=== PATIENT | male | born 1945 | race African-American/Black ===

== ENCOUNTER → 2017-10-21 | Outpatient (CLI) | payer MEDICARE ==
--- NOTE | 2017-10-21 13:38 | EST ---
EXERCISE STRESS DATE OF SERVICE: 10/21/2017 AGE: 72 SEX: Male HT: 70 WT: 216 PROTOCOL: Ritesh. STAGE: III DURATION OF EXERCISE: 9:24 HEART RATE REST: 44 BLOOD PRESSURE REST: 117/78 MAXIMUM HEART RATE ACHIEVED: 119 MAXIMUM BLOOD PRESSURE: 207/70 85% MPHR: 128 100% MPHR: 150 METS: 10.9 INDICATIONS: Bradycardia. CLINICAL INFORMATION: Baseline EKG revealed normal sinus rhythm with left anterior fascicular block and evidence of LVH by voltage criteria. Patient walked for 9 minutes 24 seconds achieved a maximal heart rate of 119 beats per minute, which is less than 85% of predicted maximal. He developed fatigue and shortness of breath. Resting heart rate is 44 beats per minute. Peak heart rate is 119 beats per minute. Resting blood pressure was 117/78. Peak blood pressure was 207/70. Patient had some rare isolated PVCs. By EKG criteria, this is an inconclusive stress test because of inadequate chronotropic response with a fairly decent exercise time. There was no angina reported. IMPRESSION: Inconclusive stress test with fair exercise capacity. If ischemia is suspected, would recommend a pharmacological stress test. MMODL / IJN: [id number] /
== END ==
LOC: RADNMMAIN 11:02
PROVIDERS: ATTEND Family Medicine
DX: R00.1 Bradycardia, unspecified (principal)
CPT/HCPCS: 93017

== ENCOUNTER → 2021-04-21 | Outpatient (CLI) | payer MEDICARE ==
--- NOTE | 2021-04-21 12:23 | US ---
EXAMINATION TYPE: US kidneys/renal and bladder DATE OF EXAM: 04/21/2021 COMPARISON: NONE CLINICAL HISTORY: N18.31 CKD. EXAM MEASUREMENTS: Right Kidney: 10.9 x 5.2 x 5.0 cm Left Kidney: 10.4 x 5.8 x 4.5 cm Right Kidney: No hydronephrosis or shadowing renal calculi seen Left Kidney: 3.8 x 2.8 x 2.7cm cyst superior pole no hydronephrosis or shadowing renal calculi Bladder: Urinary bladder is not well-distended Bilateral Jets seen: yes IMPRESSION: 1. No hydronephrosis or shadowing renal calculi. 2. 3.8 cm cyst at the upper pole of the left kidney. 3. Bilateral ureteral jets are seen. The urinary bladder is not well-distended.
== END | disposition home or self-care (01) ==
LOC: RADUSWWP 09:27
PROVIDERS: ATTEND Internal Medicine Nephrology
DX: N28.1 Cyst of kidney, acquired (principal); N18.31 Chronic kidney disease, stage 3a
CPT/HCPCS: 76770

== ENCOUNTER 2022-06-26 05:50 | Day surgery (SDC) | payer MEDICARE ==
[2022-06-25 09:14] VITALS: BMI 34.0
[~2022-06-26 05:50] MED LIST: LACTATED RINGERS 1,000 ML IV SCH
[2022-06-26 06:14] VITALS: TEMP 97.8
[2022-06-26] MEDS ORDERED: LACTATED RINGERS 1,000 ML IV ONE (06:16)
[2022-06-26 06:25] LABS: Glucose,Whole Blood 139 mg/dL (70-110)
[2022-06-26] MEDS ORDERED: PROPOFOL 10 MG/ML 20 ML VIAL IV ONE (06:58)
--- NOTE | 2022-06-26 07:17 | P.PCN ---
Date of Procedure: 06/26/22 Procedure(s) Performed: BRIEF HISTORY: Patient is a 77-year-old pleasant female scheduled for an elective colonoscopy as a part of screening for colorectal neoplasia. His brother was diagnosed with colon cancer at age 50. PROCEDURE PERFORMED: Colonoscopy with snare polypectomy. PREOPERATIVE DIAGNOSIS: F screening for colon cancer andamily History of Colon Cancer. IV sedation per Anesthesia. PROCEDURE: After informed consent was obtained, the patient, was brought into the endoscopy unit. IV sedation was administered by Anesthesia under continuous monitoring. Digital rectal examination was normal. Initially the Olympus CF-160 flexible video colonoscope was then inserted in the rectum, gradually advanced into the cecum without any difficulty. Careful examination was performed as the scope was gradually being withdrawn. Ileocecal valve and the appendiceal orifice were visualized and appeared normal. Prep was excellent. Mucosa of the cecum, ascending colon appeared normal. In the transverse colon there was a 3 mm and 6 mm polyp removed by snare polypectomy. In the descending colon there was a 7 mm polyp removed by snare polypectomy and in the sigmoid colon there was a 5 mm polyp removed by snare polypectomy. Rest of the , transverse colon, descending colon, sigmoid colon, and rectum appeared normal. Retroflexion was performed in the rectum aninternal hemorrhoidsere seen. The patient tolerated the procedure well. IMPRESSION: 3 mm and 6 mm transverse colon polyp status post polypectomy 7 mm descending colon polyp status post polypectomy 5 mm sigmoid polyp status post polypectomy Small internal hemorrhoids RECOMMENDATIONS: Findings of this examination were discussed with the patient as well as his family. He was advised to follow with the biopsy results. If the biopsy reveals adenoma he can have a repeat colonoscopy in 3 years.
[2022-06-26 07:22] VITALS: RESP 16
[2022-06-26 08:04] VITALS: BP 147/83; PULSE 58
== END 2022-06-26 08:09 | disposition home or self-care (01) ==
LOC: ORWHC2ENDO 05:50
PROVIDERS: ATTEND Internal Medicine Gastroenterology
DX: Z12.11 Encounter for screening for malignant neoplasm of colon (principal); D12.4 Benign neoplasm of descending colon; D12.5 Benign neoplasm of sigmoid colon; D12.3 Benign neoplasm of transverse colon; K64.8 Other hemorrhoids; Z80.0 Family history of malignant neoplasm of digestive organs; I10 Essential (primary) hypertension; E11.69 Type 2 diabetes mellitus with other specified complication; E78.5 Hyperlipidemia, unspecified; M19.90 Unspecified osteoarthritis, unspecified site; Z79.4 Long term (current) use of insulin; Z79.899 Other long term (current) drug therapy; Z79.82 Long term (current) use of aspirin; Z82.49 Family history of ischemic heart disease and other diseases of the circulatory system
CPT/HCPCS: 88305; 45385; J2704

== ENCOUNTER → 2023-02-22 | Outpatient (CLI) | payer MEDICARE ==
[2023-02-22 11:23] LABS: African American GFR (CKD) 41.4 (60.0-200.0); Anion Gap 9.2 mmol/L (10.00-18.00); Blood Urea Nitrogen 29.6 mg/dL (9.0-27.0); Carbon Dioxide 27.8 mmol/L (20.0-27.5); Non-African American GFR(CKD) 35.8 (60.0-200.0); Potassium 4.8 mmol/L (3.5-5.5)
[2023-02-22 12:03] LABS: HCT 45.7 % (39.6-50.0); HGB 14.7 g/dL (13.0-17.0); MCH 28.7 pg (27.0-32.0); MCHC 32.2 g/dL (32.0-37.0); MCV 89.1 fL (80.0-97.0); Mean Platelet Volume 13.1 fL (9.5-12.2); NRBC Per 100 WBC 0 /100 WBCS (0.0-0.0); Platelet Count 135 X 10*3/uL (140-440); RBC 5.13 X 10*6/uL (4.40-5.60); RDW 14.1 % (11.5-14.5); WBC 9.91 X 10*3/uL (4.50-10.00)
== END | disposition home or self-care (01) ==
LOC: LABPAT 07:56
PROVIDERS: ATTEND Internal Medicine Interventional Cardiology
DX: Z01.812 Encounter for preprocedural laboratory examination (principal); I49.5 Sick sinus syndrome
CPT/HCPCS: 80051; 82565; 84520; 85027

== ENCOUNTER 2023-03-05 09:27 | Day surgery (SDC) | payer MEDICARE ==
[~2023-03-05 09:27] MED LIST changes: -LACTATED RINGERS 1,000 ML IV SCH; +ceFAZolin 1 GM in SODIUM CHLORIDE 0.9% IRRIG BTL 250 ML IRRIGATION PRN
[2023-03-05] MEDS: SODIUM CHLORIDE 0.9% 1,000 ML IV SCH (10:00)
[2023-03-05 10:07] LABS: Glucose,Whole Blood 199 mg/dL (70-110)
[2023-03-05] MEDS ORDERED: IOPAMIDOL-370 100ML BTL INJ ONE (12:00)
[2023-03-05] MEDS ORDERED: LIDOCAINE 1% INJ 10MG/ML (20 ML MDV) ONE ×2 (12:05→12:06)
[2023-03-05] MEDS ORDERED: MIDAZOLAM 2 MG/2 ML VIAL IV ONE (12:13)
[2023-03-05] MEDS ORDERED: LIDOCAINE 1% INJ 10MG/ML (20 ML MDV) SQ ONE (12:21)
[2023-03-05] MEDS ORDERED: NITROGLYCERIN SL TABS 0.4 MG TAB SUBLINGUAL ONE ×2 (14:35→14:38)
[2023-03-05] MEDS ORDERED: amLODIPine 5 MG TAB PO STA (14:36)
[2023-03-05] MEDS ORDERED: amLODIPine 5 MG TAB PO ONE (14:49)
[2023-03-05] MEDS ORDERED: ACETAMINOPHEN TAB 325 MG TAB PO PRN (14:50)
--- NOTE | 2023-03-05 15:19 | P.PCN ---
Date of Procedure: 03/05/23 Preoperative Diagnosis: Procedure(s): Dual Chamber Permanent Pacemaker Implantation; Cardiac Fluoroscopy Indications: Sick sinus syndrome with symptomatic bradycardia with near syncope Preprocedure Diagnosis: Symptomatic bradycardia with near syncope Postprocedure Diagnosis: Symptomatic bradycardia with near syncope Clinical information: This gentleman is 78 years of age with a history of hypertension hyperlipidemia type 2 diabetes moderate mitral regurgitation and tricuspid regurgitation. He has been having symptoms of exertional near syncope lightheadedness with bradycardia and heart rate in the 30s sometimes 28-30 bpm and average heart rate of 40 bpm. In view of his symptomatic bradycardia he was advised to dual-chamber pacemaker after due discussion regarding risks benefits and options. He understood or details and wish to proceed with the procedure Moderate conscious sedation time was 159 minutes. Patient was administered 1 circumflex oxygen saturation hematemesis and EKG were monitored closely Procedure Details: The risks, benefits, complications, treatment options, and expected outcomes were discussed with the patient. The patient and/or family concurred with the proposed plan, giving informed consent. Patient was prepped and draped in the usual strict sterile fashion. After the antibiotic was completely infused, 20 mL of 1% lidocaine was infiltrated into the area just medial to the left deltopectoral groove. Using a micropuncture needle technique with fluoroscopic guidance two access were obtained into the axillary vein. 2 wires were advanced under to access fluoroscopic guidance in In the right atrium. Using a #15 scalpel, an incision was made. The incision was extended to the pre-pectoral fascia using blunt dissection. Using cautery and dissection a pocket was made. A guidewire was advanced to the heart under fluoroscopic guidance. Sheath was advanced over the guidewire. A guidewire was retained, and dilator was removed. A pacemaker lead was advanced to the heart underfluoroscopic guidance. The sheath was peeled away. The lead was fixated to the right ventricular apical septum. Appropriate sensing and thresholds were obtained. No diaphragmatic pacing occurred at 10 V and 1.5 ms. As second sheath was advanced over the guidewire. The dilator and guidewire were removed. A pacemaker lead was advanced to the heart underfluoroscopic guidance. The sheath was peeled away. The lead was fixated to the right atrial appendage. Appropriate sensing and thresholds were obtained. No diaphragmatic pacing occurred at 10 V and 1.5 ms. Both were active leads and both the leads were screwed and and secured to the underlying muscle using 2 separate 0 silk sutures. The leads were then sutured to the pectoralis muscle using silk. Hemostasis was achieved. The measurements were then rechecked. After obtaining a good lead position for both atrial and ventricular leads, upon rechecking the numbers are suboptimal so both the leads had to be repositioned and again all paramedics were checked pacing was checked at 10 more so and after making sure that the thresholds and sensitivities impedance was optimal the leads were again secured to the underlying muscle. The pocket was irrigated with antibiotic. A left pre-pectoral pocket was fashioned.The pocket was irrigated with antibiotic and iron graft and antibiotic sponge in the pocket for minutes. The leads were attached to the generator. The system was placed in the pocket. The pacemaker and lead system were visualized under fluoroscopy. Appropriate redundancy/slacken the leads were noted. The pins of the leads were beyond the set screws. The pulse generator was also secured to the underlying muscle using a 0 silk suture. Hemostasis was reverified. The pocket was then closed with 2.0 and 3.0 Vicryl. Steri-Strips, a gauze dressing, and operative site were placed. Pacemaker Donor Services Technician : Medtronic model W1 DR 01 serial number [id number] Atrial lead model #456495 serial number [id number] placed in the right atrial appendage. The lead performance support analyst is Medtronic Ventricular lead lead performance support analyst is Medtronic model #639679 serial number [id number] placed in right ventricular apex The atrial sensing after a lot of effort was acceptable with P waves of 1.5 mV, pacing impedance of 513 ohms and a threshold of 0.5 V at 0.4 ms. The ventricular R waves were in the range of 7-9 mV pacing impedance was 698 ohms and the threshold was 0.5 V at 0.4 ms The pacemaker was set at a lower rate of 55 high rate of 120 BPM the mode was was DDD AV paced delay was 180 ms. AV sensed delay was 150 ms. Estimated Blood Loss: Less than 50 ml. Complications: None; patient tolerated the procedure well. There was no family available and patient did not wish that I talked any family members. Discussed with him the details of the procedure and that he will be discharged tomorrow after we recheck a chest x-ray and recheck the device Disposition: Telemetry unit.- hemodynamically stable. Condition: Stable. No complications. Patient will be discharged in 24 hours after device check and chest x-ray.
[2023-03-05 16:01] LABS: Glucose,Whole Blood 177 mg/dL (70-110)
--- NOTE | 2023-03-05 16:37 | XR ---
EXAMINATION TYPE: XR chest 1V portable DATE OF EXAM: 03/05/2023 Comparison: None Clinical History: 78 year-old male Lead placement check Findings: Left anterior chest wall pacemaker generator with right atrial right ventricular leads. Heart mildly enlarged. Slightly low lung volumes. Interstitial/vascular prominence. No georgiana consolidation or pleu ral effusion. No appreciable pneumothorax. Impression: Cardiomegaly with some hypoventilatory changes. Interstitial/vascular prominence could reflect mild p ulmonary vascular congestion.
[2023-03-05] MEDS ORDERED: hydrALAZINE HCL 20 MG/ML 1 ML VIAL IVP PRN (17:24)
[2023-03-05 17:37] LABS: Glucose,Whole Blood 376 mg/dL (70-110)
[2023-03-05] MEDS ORDERED: lisinopriL 20 MG TAB PO STA (18:38)
[2023-03-05] MEDS ORDERED: ATORVASTATIN 20 MG TAB PO SCH (21:00)
[2023-03-05] MEDS ORDERED: INSULIN ASPART (NovoLOG) 100 UNIT/ML VIAL SQ SCH (21:00)
[2023-03-05 21:02] LABS: Glucose,Whole Blood 312 mg/dL (70-110)
[2023-03-06] MEDS: SODIUM CHLORIDE 0.9% 1,000 ML IV SCH (03:57)
[2023-03-06] MEDS ORDERED: INSULIN DETEMIR (LEVEMIR) 100 UNIT/ML SYR SQ SCH (07:00)
[2023-03-06 07:31] VITALS: BP 141/69; PULSE 51; RESP 18; TEMP 98.3
[2023-03-06 08:06] LABS: Glucose,Whole Blood 122 mg/dL (70-110)
[2023-03-06] MEDS ORDERED: ASPIRIN 81 MG PO SCH (09:00)
[2023-03-06] MEDS ORDERED: LINAGLIPTIN 5 MG TABLET PO SCH (09:00)
[2023-03-06] MEDS ORDERED: lisinopriL 20 MG TAB PO SCH (09:00)
[2023-03-06 12:17] LABS: Glucose,Whole Blood 346 mg/dL (70-110)
--- NOTE | 2023-03-06 15:48 | P.DS ---
Providers Attending physician: Leelee Ghosh Primary care physician: [facility] Course: The patient is a 78-year-old male who is currently admitted to the hospital after undergoing biventricular pacemaker implantation yesterday with Dr. SEKOU Ghosh. The patient was found to have severe sick sinus syndrome with average rates in the 40s and poor chronotropic capacity. Successful biventricular pacemaker was implanted without complication. Follow-up chest x-ray shows possible pulmonary vascular congestion, however no appreciable pneumothorax or pleural effusions. Device interrogation this morning is pending. The patient states he is feeling well and did well overnight. No pain and no need for pain medications. No chest pain, dyspnea, orthopnea, or dizziness when ambulating around his room. He is currently wearing his left arm sling. GENERAL: Well-appearing, well-nourished and in no acute distress. NECK: Supple without JVD or thyromegaly. LUNGS: Breath sounds clear to auscultation bilaterally. Respiration equal and unlabored. No wheezes, rales or rhonchi. HEART: Regular rate and rhythm without murmurs, rubs or gallops. S1 and S2 heard. Shadowing noted over left anterior dressing EXTREMITIES: Normal range of motion, no edema. No clubbing or cyanosis. Pe ripheral pulses intact and strong. VITALS: Blood pressure 141/69, pulse 60, afebrile, respiratory rate 18, SpO2 90% on room air TELEMETRY: Paced rhythm overnight LABS: Hemoglobin A1c 9.8 IMPRESSION: Sick sinus syndrome Status post permanent pacemaker implantation History of hypertension History diabetes History of aortic insufficiency PLAN: Awaiting device interrogation Patient may be discharged Nursing staff to review lifting restrictions with patient prior to discharge Follow-up with device clinic and primary employment appeals examiner in 1 week I am dictating on behalf of Dr Rosas León's history/physical and assessment/plan. Patient Condition at Discharge: Fair Plan - Discharge Summary Discharge Rx Participant: No New Discharge Prescriptions: No Action Simvastatin [Zocor] 40 mg PO HS Insulin Detemir (Levemir) [Levemir] 80 unit SQ QAM lisinopriL [Zestril] 20 mg PO DAILY Aspirin EC [Ecotrin Low Dose] 81 mg PO DAILY Insulin Aspart [NovoLOG Flexpen] 35 units SQ HS Dulaglutide [Trulicity] 0.75 mg SQ WEEKLY Saxagliptin HCl [Onglyza] 5 mg PO DAILY Discharge Medication List Insulin Detemir (Levemir) [Levemir] 80 unit SQ QAM 02/26/15 [History] Simvastatin [Zocor] 40 mg PO HS 02/26/15 [History] Aspirin EC [Ecotrin Low Dose] 81 mg PO DAILY 06/25/22 [History] Insulin Aspart [NovoLOG Flexpen] 35 units SQ HS 06/25/22 [History] Saxagliptin HCl [Onglyza] 5 mg PO DAILY 06/25/22 [History] lisinopriL [Zestril] 20 mg PO DAILY 06/25/22 [History] Dulaglutide [Trulicity] 0.75 mg SQ WEEKLY 03/04/23 [History] Follow up Appointment(s)/Referral(s): Quentin Power MD [STAFF PHYSICIAN] - 1 Week (Office will call patient with date and time of appointment) Activity/Diet/Wound Care/Special Instructions: PATIENT EDUCATION MATERIAL Instructions following a heart rhythm device implant. 1. Keep dressing DRY for 5 DAYS. You may cover the area with Saran or Cling Wrap, prior to a shower. 2. The dressing will be removed in the Device Clinic at [facility]. Absorbable sutures were used to close the wound. 3. Avoid raising the left arm above the shoulder level. 4 week restriction 4. Avoid arm movements, like backscratching, rubbing the head, or pulling on a cord. 4 weeks restriction 5. Gentle range of motion movements of the shoulder, closest to the incision should be performed to avoid a frozen shoulder. (Pendulum exercises of the shoulder) 6. The opposite arm may be used freely. 7. Avoid driving for 7 days. 8. Avoid activities such as golfing, swimming, weed whacking, lifting more than 10 pounds weight, bowling, gymnastics and weight training/lifting. (6 weeks restriction) 9. Activities such as wood chopping with an axe, pull-ups in the gymnasium, power lifting, arc-welding, being close to home induction cooktops will always be a problem. 10. Arm sling is only a reminder not to raise the arm above the head. You do not need to keep the arm completely immobilized. Your free to move the arm and use it and for normal activities. In case of any problems, please call [facility] [place], @ [phone], Attention: Device Clinic Device clinic follow-up in 5 days Follow-up with primary employment appeals examiner in 1 months Discharge Disposition: HOME SELF-CARE
[2023-03-12] MEDS ORDERED: NON FORMULARY DRUG (Dulaglutide [Trulicity] 0.75 MG/0.5 ML Each) SQ SCH (09:00)
== END 2023-03-06 13:20 | disposition home or self-care (01) ==
LOC: CATHEP 09:27 → 6NMEDSUR 14:55 → CATHEP 03-06 13:20
PROVIDERS: ATTEND Internal Medicine Interventional Cardiology
DX: I49.5 Sick sinus syndrome (principal); I10 Essential (primary) hypertension; E78.5 Hyperlipidemia, unspecified; E11.9 Type 2 diabetes mellitus without complications; I08.1 Rheumatic disorders of both mitral and tricuspid valves; Z79.82 Long term (current) use of aspirin; Z79.899 Other long term (current) drug therapy
CPT/HCPCS: 33208; 83036; 71045; C1769 ×2; C1892; C1898; C1785; J2250; J0360; J0690; J2001; Q9967

== ENCOUNTER → 2023-11-10 | Outpatient (CLI) | payer MEDICARE ==
--- NOTE | 2023-11-10 09:58 | US ---
EXAMINATION TYPE: US liver DATE OF EXAM: 11/10/2023 COMPARISON: NONE CLINICAL INDICATION: Male, 78 years old with history of R74.01 ELEVATION OF LEVELS OF LIVER TRANSAMIN ASE L; elevated liver enzymes TECHNIQUE: Multiple sonographic images of the right upper quadrant are obtained. FINDINGS: EXAM MEASUREMENTS: Liver Length: 15 cm Gallbladder Wall: .2 cm CBD: .5 cm Right Kidney: 11.8 x 4.8 x 3.9 cm PYTHON DEVELOPER NOTES: Some limitations due to patient body habitus. Pancreas: Obscured by bowel gas Liver: Overall homogeneous appearance. No focal lesion. Gallbladder: No stones seen Evidence for sonographic Stephens's sign: No CBD: wnl Right Kidney: No hydronephrosis or masses seen IMPRESSION: No gallstones or biliary ductal dilatation. The pancreas is obscured and not evaluated on this exam.
== END | disposition home or self-care (01) ==
LOC: RADUSWWP 06:50
PROVIDERS: ATTEND Family Medicine
DX: R74.01 Elevation of levels of liver transaminase levels (principal)
CPT/HCPCS: 76705

== ENCOUNTER → 2024-05-25 | Outpatient (CLI) | payer MEDICARE ==
--- NOTE | 2024-05-25 15:18 | US ---
EXAMINATION TYPE: US kidneys/renal and bladder DATE OF EXAM: 05/25/2024 COMPARISON: 2020 CLINICAL INDICATION: Male, 79 years old with history of N18.31 CKD STAGE 3A; EXAM MEASUREMENTS: Right Kidney: 11.6 x 5.6 x 5.8 cm Left Kidney: 10.5 x 5.5 x 5.4 cm Right Kidney: No hydronephrosis, nephrolithiasis or masses seen Left Kidney: Cyst superior pole measures 3.4 x 2.8 x 2.8cm . No hydronephrosis or nephrolithiasis. Bladder: 104ml; anechoic Bilateral Jets seen: No Renal cortical thickness and echogenicity maintained. IMPRESSION: 1. No hydronephrosis or nephrolithiasis. 2. Simple appearing Bosniak classification 1 left renal cyst.
== END | disposition home or self-care (01) ==
LOC: RADUSWWP 14:44
PROVIDERS: ATTEND Internal Medicine Nephrology
DX: N18.31 Chronic kidney disease, stage 3a (principal); N28.1 Cyst of kidney, acquired
CPT/HCPCS: 76770